=== PATIENT | male | born 1985 | race African-American/Black ===

== ENCOUNTER 2018-01-23 15:17 | Emergency (ER) | payer SELFPAY ==
[~2018-01-23] VITALS: Ht 190.5 cm; Wt 107.0 kg
[2018-01-23 17:25] LABS: BASOPHILS % 0.6 % (0.0-2.0); EOSINOPHILS % 3.1 % (0.0-5.0); HEMATOCRIT. 47.1 % (42.0-52.0); LYMPHOCYTES % 29.4 % (20.0-50.0); MEAN PLATELET VOLUME 8.4 fl (7.4-10.4); MONOCYTES % 7.3 % (2.0-8.0); NEUTROPHILS % 59.6 % (40.0-76.0); PLATELET 219 x1000/uL (130-400); RED BLOOD CELL COUNT 5.01 mill/uL (4.7-6.1); RED CELL DISTRIBUTION WIDTH 13.1 % (11.6-14.6)
[2018-01-23 17:33] LABS: PROTHROMBIN TIME 10.3 sec (9.1-11.1)
[2018-01-23 17:34] LABS: CHLORIDE 105 mEq/L (98-107)
[2018-01-23] MEDS ORDERED: IBUPROFEN 800MG TABLET PO ONE (18:00)
[2018-01-23 18:07] VITALS: BP 130/74
== END 2018-01-24 11:24 | disposition home or self-care (01) ==
LOC: ER 01-24 00:53
DX: R07.89 Other chest pain (principal); F12.10 Cannabis abuse, uncomplicated
CPT/HCPCS: 36415; 71045; 84484; 93005; 99284